=== PATIENT | male | born 1950 | race Caucasian/White ===

== ENCOUNTER 2019-11-30 10:53 | Outpatient (CLI) | payer OTHER, SELFPAY ==
--- NOTE | 2019-11-30 11:06 | MR_ITS ---
WS: [id number] MRI BRAIN WITH AND WITHOUT CONTRAST HISTORY: TREMOR COMPARISON: CT head 08/02/2008 TECHNIQUE: Multiplanar imaging performed through the brain with Prohance 15 ml's IV. No acute infarct or hemorrhage. Moderate amount of chronic microvascular ischemic changes throughout the white matter. No prior lacunar infarct. Mild bilateral symmetric atrophy. No susceptibility artifacts or prior lacunar infarcts. Ventricles and extra-axial spaces are very mildly prominent on the basis of atrophy. Clivus and pituitary gland are normal. Visualized posterior fossa and brainstem are also normal. No intracranial masses are identified. No vascular malformation. Dense area of enhancement in the RIG HT M1 portion of the MCA. Area of enhancement measures 5.3 mm and suspicious for an aneurysm. No tejinder cent hemorrhage. Dural venous sinuses are normal. Paranasal sinuses: Well aerated with no significant disease. Mastoid air cells: LEFT mastoid air cell effusion. Calvarium and scalp: Normal. MR/MR head wo/w con [id number] IMPRESSION: 1. No acute infarcts or masses. 2. Highly suspicious for RIGHT M1 aneurysm measuring 5.2 mm. Further evaluatio n by MR angiogram or CT angiogram is recommended. 3. Mild cerebral atrophy and moderate chronic microvascular ischemic disease. 4. LEFT mastoiditis.
== END 2019-11-30 10:54 | disposition home or self-care (01) ==
LOC: RADWPI 10:57
PROVIDERS: Family Provider Family Medicine; PCP Family Medicine; Visit Provider Family Medicine
DX: R25.1 Tremor, unspecified (principal); I67.82 Cerebral ischemia; H70.92 Unspecified mastoiditis, left ear
CPT/HCPCS: 70553; A9579

== ENCOUNTER 2020-01-10 11:45 | Outpatient (CLI) | payer OTHER, SELFPAY ==
[2020-01-10 12:33] LABS: Basophils # 0.1 10^3/uL (0.0-0.1); Eosinophils # 0.1 10^3/uL (0.0-0.8); Hematocrit 37.6 % (42.0-52.0); Hemoglobin 12.7 g/dL (11.7-16.6); Lymphocytes % 22.8 %; Mean Corpuscular HGB Conc 33.8 g/dL (30.0-36.0); Mean Corpuscular Hemoglobin 33.3 pg (28.0-34.0); Mean Corpuscular Volume 98.7 fL (80-94); Monocytes # 1.1 10^3/uL (0.2-0.9); Monocytes % 12.2 %; Neutrophils # 5.36 10^3/uL (1.8-7.7); Neutrophils % 62.3 %; Nucleated Red Blood Cells % 0 %; Platelet Count 142 10^3/cmm (130-400); Red Blood Count 3.81 10^6/uL (4.1-5.3); Red Cell Distribution Width 14.6 % (12.1-15.1); White Blood Count 8.6 10^3/uL (4.0-10.0)
[2020-01-10 12:44] LABS: INR 1.51 (0.8-1.2); Partial Thromboplastin Time 34.7 SECONDS (23.9-36.7)
[2020-01-10 12:45] LABS: Fibrinogen 179 mg/dL (174-498)
[2020-01-10 12:49] LABS: Albumin Level 2.6 g/dL (3.5-5.2); Alkaline Phosphatase 91 IU/L (40-130); Anion Gap 14.1 (5-19); Aspartate Amino Transferase 96 U/L (0-40); Blood Urea Nitrogen 6 mg/dL (8-23); Calcium 8.6 mg/dL (8.5-10.5); Carbon Dioxide 28 mmol/L (22-29); Chloride 92 mmol/L (98-107); Glucose 126 mg/dL (65-115); Osmolality Calculated 271 mOsm/kg (285-295); Potassium 3.1 mmol/L (3.5-5.1); Sodium 131 mmol/L (136-145); Total Bilirubin 4.2 mg/dL (0.15-1.2); Total Protein 7.6 g/dL (6.6-8.7)
[2020-01-10 12:50] LABS: Ammonia 26 umol/L (16-60)
[2020-01-10 12:54] LABS: Platelet Count 142 10^3/cmm (130-400)
[2020-01-10 13:03] LABS: Alanine Aminotransferase 39 U/L (0-41)
[2020-01-10 14:31] LABS: Tumor Marker Alpha Fetoprotein 4.1 ng/mL (0-8.3)
== END 2020-01-10 11:46 | disposition home or self-care (01) ==
LOC: LAB 11:47
PROVIDERS: PCP Family Medicine; Visit Provider Internal Medicine
DX: K74.60 Unspecified cirrhosis of liver (principal)
CPT/HCPCS: 36415; 80053; 82105; 82140; 85025; 85049; 85384; 85610; 85730

== ENCOUNTER → 2020-01-12 13:10 | Outpatient (BNVA) | payer OTHER, SELFPAY | PROVIDERS: PCP Family Medicine; Visit Provider Internal Medicine | DX: Z20.828 Contact with and (suspected) exposure to other viral communicable diseases (principal) | CPT/HCPCS: 87635 ==

== ENCOUNTER 2020-01-18 08:12 | Day surgery (SDC) | payer OTHER, SELFPAY ==
[2020-01-16 09:23] VITALS: BMI 17.4
[2020-01-18] MEDS: sodium chloride 0.9% 1,000 ML 30 ML IV (08:34)
[2020-01-18 08:51] VITALS: BP 145/86; PULSE 70; RESP 18; TEMP 36.8; O2SAT 99
--- NOTE | 2020-01-18 09:05 | ANES.PREANE2 ---
Pre-Anesthetic Assessment Pre-Anesthetic Assessment: Height/Weight: Height 1.85 m Weight 59.874 kg Temp Pulse Resp BP Pulse Ox 98.3 F 70 18 145/86 99 01/18/20 08:51 01/18/20 08:51 01/18/20 08:51 01/18/20 08:51 01/18/20 08:51 Preop Diagnosis: a Proposed Procedure: Operation Date: 01/18/20 09:15 Proposed Procedures p EGD 36305 R68.81(Not Applicable) - Víctor Marrero MD Was Beta Diomedes taken within 24 hours: N/A Last intake: Intake Last Liquid Date 01/16/20 Last Solid Date 01/16/20 Social: Social History: Alcohol and Tobacco Exam: Pre-Anes Outpt Exam: alert, oriented x 3 and regular rate & rhythm Additional Exam Findings (including area of procedure): Diminished BS Airway: Submandibular: WNL Cervical ROM: WNL MP: 2 Dentition: False Pulmonary: Pulmonary: COPD and Cough CV/HEM: CV/HEM: None reported : : None reported Hepatic: Hepatic: Cirrohsis GI: Comments: Diminished apatite and bloating Musc/skel: Musc/skel: OA/DJD Neuropsych: Neuropsych: None reported Anesthetic Plan: ASA status: 3 Anesthesia: MAC Meds/Allergies Current Medications: Current Medications Generic Name Dose Route Start Last Admin Trade Name Freq PRN Reason Stop Dose Admin Sodium Chloride 1,000 mls @ 30 ml s/hr 01/18/20 08:30 01/18/20 08:34 Sodium Chloride 0.9% IV 30 mls/hr .Q24H AGUILA Administration PFSH Anesthesia PFSH: Social History (Updated 01/10/20 @ 10:49 by AKSHAT Bhatt) Smoking and tobacco status: current every day smoker Alcohol intake: current Adopted: No Marital status: Number of children: 2 service: Yes History of recent travel: No Data Anesthesia Cardiac Studies: No Data to Display
--- NOTE | 2020-01-18 09:44 | W.PM.OPSUD ---
Surgery/Procedure H&P Update DATE OF PROCEDURE: January 18, 2020 DATE H&P PERFORMED: 01/10/20 PREOP DIAGNOSIS: a PLANNED PROCEDURE: Operation Date: 01/18/20 09:15 Proposed Procedures p EGD 12184 R68.81(Not Applicable) - Víctor Marrero MD
[2020-01-18 10:05] VITALS: BP 98/65; PULSE 87; RESP 18; TEMP 36.4; O2SAT 99
[2020-01-18 10:17] VITALS: BP 110/75; PULSE 82; RESP 18; O2SAT 99
--- NOTE | 2020-01-18 14:45 | ANE.PACU2 ---
Inpatient post-anesthesia follow up: Airway intact: Yes Vital signs: Temperature 97.5 F Pulse Rate 82 Respiratory Rate 18 Blood Pressure 110/75 Pulse Oximetry 99 Oxygen Delivery Me thod Room Air Oxygen Flow Rate 6 Fraction of Inspir ed Oxygen Hydration adequate: Yes Nausea and vomiting: No Pain level: 2 Mental status: Baseline
[2020-01-21 06:53] LABS: H. Pylori / CLO Test Negative
== END 2020-01-18 10:47 | disposition home or self-care (01) ==
PROVIDERS: PCP Family Medicine; Visit Provider Internal Medicine
PROC: 0DJ08ZZ Inspection of Upper Intestinal Tract, Via Natural or Artificial Opening Endoscopic (ICD-10-PCS; CPT 43235; principal; 2020-01-18 09:15)
DX: R13.10 Dysphagia, unspecified (principal); R63.4 Abnormal weight loss; R68.81 Early satiety; K29.71 Gastritis, unspecified, with bleeding; F17.200 Nicotine dependence, unspecified, uncomplicated; K74.60 Unspecified cirrhosis of liver; I67.1 Cerebral aneurysm, nonruptured; J44.9 Chronic obstructive pulmonary disease, unspecified
CPT/HCPCS: 12345; 43239; 87077; J2704; J7030

== ENCOUNTER 2020-01-29 18:26 | Emergency (ER) | payer OTHER, MEDICARE, SELFPAY ==
--- NOTE | 2020-01-29 18:30 | XR_ITS ---
WS: [id number] XR chest 1V portable [id number] REASON FOR EXAM: weakness FINDINGS: The chest is unchanged compared to 08/02/2008. The heart and mediastinum are within normal limits for age. Calcified granulomatous change in both hemithoraces. No active pulmonary parenchymal or pleural disea se. Mild changes of degenerative spondylosis in the mid and lower thoracic spine. XR/XR chest 1V portable [id number] IMPRESSION: No acute chest abnormality.
[2020-01-29 18:31] VITALS: BP 111/68; PULSE 143; RESP 18; TEMP 36.8; O2SAT 94; BMI 14.5
--- NOTE | 2020-01-29 18:31 | ECG_ITS ---
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
--- NOTE | 2020-01-29 18:54 | W.ED.GENADLT ---
HPI - General Adult General: Chief complaint: General Medical Stated complaint: FAILURE TO THRIVE, MALNUTRITION Time Seen by Provider: 01/29/20 18:29 Source: patient and EMS Mode of arrival: EMS Limitations: no limitations History of Present Illness: HPI narrative: 69-year-old male who has a history of cirrhosis states that he has had increased weakness over the last week. He states he has not been eating or drinking and is feeling quite dehydrated. He is also having palpitations is tachycardic with heart rate in the 140s with possible A. fib. Has no history of A. fib. States he has had abdominal distention. He denies any worsening or improving factors. Patient is very ill appearing chronically and very cachectic Associated symptoms: Reports palpitations; Deny dyspnea, nausea, rash or vomiting Review of Systems Const: Reports: fatigue Eyes: Denies: blurry vision or eye discomfort ENMT: Denies: throat pain or dental pain Card: Reports: palpitations Resp: Denies: dyspnea GI: Denies: abdominal pain, nausea, vomiting or diarrhea : Denies: dysuria Musc: Denies: neck pain or back pain Skin/Breast: Denies: rash Neuro: Reports: weakness in extremities Psych: Denies: depression Roberto/Lymph: Denies: easy bruising All/Imm: Denies: urticaria PFSH ED PFSH: Social History (Updated 01/29/20 @ 18:37 by Clovis Godinez RN) Smoking and tobacco status: light tobacco smoker Alcohol intake: current Substance/Drug Use: current Substance/Drug use frequency: daily Substance/Drug use type: Marijuana Adopted: No Marital status: Number of children: 2 service: Yes History of recent travel: No Physical Exam Const: COMMON NORMALS: patient oriented x3 GENERAL APPEARANCE: ill appearing and frail appearing NUTRITIONAL APPEARANCE: cachectic HENMT: COMMON NORMALS: normocephalic and atraumatic HEAD & SCALP: normocephalic and atraumatic Eye: COMMON NORMALS: Equal, round and reactive pupils present and EOMs intact bilaterally PUPIL: Yes Equal, round and reactive pupils present Neck/C-Spine: COMMON NORMALS: full ROM and supple Chest: COMMONS NORMALS: normal inspection of the chest and normal palpation of entire chest wall Resp: COMMON NORMALS: normal respiratory effort, No retractions, No use of accessory muscles and clear to auscultation bilaterally AUSCULTATION: clear to auscultation bilaterally Cardio: COMMON NORMALS: No murmurs present (Cardio) RATE: tachycardic RHYTHM: abnormal rhythm irregularly irregular GI: COMMON NORMALS: Soft to palpation, non-tender and no masses PALPATION: Yes Soft to palpation OTHER: Distended abdomen Extremity: COMMON NORMALS: normal to inspection and full ROM Neuro: COMMON NORMALS: patient oriented x3, moves all extremities and no focal motor deficits Psych: COMMON NORMALS: mental status grossly normal, Normal thought process present and cooperative THOUGHT PROCESS: Normal thought process present Skin: COMMON NORMALS: no rashes or lesions noted and no wounds GENERAL SKIN EXAM: no rashes or lesions noted Course Vital Signs: Vital signs: Vital Signs Temperature 98.0 F 01/29/20 19:55 Pulse Rate 120 H 01/29/20 21:00 Respiratory Rate 18 01/29/20 21:00 Blood Pressure 99/68 01/29/20 21:00 Pulse Oximetry 94 01/29/20 21:00 MDM - General Adult MDM Narrative: Medical decision making narrative: Patient presents here with elevated lactate along with cirrhosis and severe liver failure with elevated INR. Patient has ascites and possible SBP. Patient was initially tachycardic here and his heart rate is now 107 after IV fluids. Patient's blood pressures been stable. Do not have any ICU bed availability here and patient likely needs transfer to an ICU with his lactate. I did speak to ICU physician at [facility] and will transfer there. Lab Data: Labs: Lab Results 01/29/20 01/29/20 01/29/20 Range/Units 19:15 19:15 19:15 WBC 3.7 L (4.0-10.0) 10^3/ uL RBC 3.42 L (4.1-5.3) 10^6/u L Hgb 11.4 L (11.7-16.6) g/dL Hct 33.9 L (42.0-52.0) % MCV 99.1 H (80-94) fL MCH 33.3 (28.0-34.0) pg MCHC 33.6 (30.0-36.0) g/dL RDW 14.6 (12.1-15.1) % Plt Count 93 L (130-400) 10^3/c mm MPV 10.2 (7.4-10.4) fL Neut % (Auto) 87.6 % Lymph % (Auto) 11.0 % [place] % (Auto) 0.3 % Eos % (Auto) 0.3 % Baso % (Auto) 0.3 % Neut # (Auto) 3.20 (1.8-7.7) 10^3/u L Lymph # (Auto) 0.4 L (0.8-4.8) 10^3/u L [place] # (Auto) 0.0 L (0.2-0.9) 10^3/u L Eos # (Auto) 0.0 (0.0-0.8) 10^3/u L Baso # (Auto) 0.0 (0.0-0.1) 10^3/u L Nucleated RBC % (a uto) 0.5 % Nucleated RBCs # 0.0 /100WBC PT 24.50 H (12.1-14.9) SECO NDS INR 2.12 H (0.8-1.2) Specimen Type Sample Site ABG pH (7.35-7.45) ABG pCO2 (35-45) mmHg ABG pO2 (80.0-100.0) mmH g ABG HCO3 (22-26) mmol/L ABG Base Excess (-2.0-2.0) mmol/ L Yogesh Test Hematocrit (42-52) % O2 Delivery Device Adjunct Professor ID Sodium 135 L (136-145) mmol/L Potassium 3.6 (3.5-5.1) mmol/L Chloride 94 L (98-107) mmol/L Carbon Dioxide 22 (22-29) mmol/L Anion Gap 22.6 H (5-19) BUN 8 (8-23) mg/dL Creatinine 0.7 (0.7-1.2) mg/dL GFR Calculation Not Reportable Glucose 104 (65-115) mg/dL Calculated Osmolal ity 279 L (285-295) mOsm/k g Lactate (0.5-2.2) mmol/L Calcium 8.8 (8.5-10.5) mg/dL Total Bilirubin 3.2 H (0.15-1.2) mg/dL AST 56 H (0-40) U/L ALT 23 (0-41) U/L Alkaline Phosphata se 94 (40-130) IU/L Total Protein 7.1 (6.6-8.7) g/dL Albumin 2.8 L (3.5-5.2) g/dL Globulin 4.3 (1.3-4.6) g/dL 01/29/20 01/29/20 Range/Units 19:15 22:12 WBC (4.0-10.0) 10^3/ uL RBC (4.1-5.3) 10^6/u L Hgb (11.7-16.6) g/dL Hct (42.0-52.0) % MCV (80-94) fL MCH (28.0-34.0) pg MCHC (30.0-36.0) g/dL RDW (12.1-15.1) % Plt Count (130-400) 10^3/c mm MPV (7.4-10.4) fL Neut % (Auto) % Lymph % (Auto) % [place] % (Auto) % Eos % (Auto) % Baso % (Auto) % Neut # (Auto) (1.8-7.7) 10^3/u L Lymph # (Auto) (0.8-4.8) 10^3/u L [place] # (Auto) (0.2-0.9) 10^3/u L Eos # (Auto) (0.0-0.8) 10^3/u L Baso # (Auto) (0.0-0.1) 10^3/u L Nucleated RBC % (a uto) % Nucleated RBCs # /100WBC PT (12.1-14.9) SECO NDS INR (0.8-1.2) Specimen Type Arterial Sample Site Brachial, right ABG pH 7.50 H (7.35-7.45) ABG pCO2 27.7 L (35-45) mmHg ABG pO2 59.5 L (80.0-100.0) mmH g ABG HCO3 21.7 L (22-26) mmol/L ABG Base Excess -0.7 (-2.0-2.0) mmol/ L Yogesh Test N/a Hematocrit 30.2 L (42-52) % O2 Delivery Device Room air Adjunct Professor ID Harkr Sodium (136-145) mmol/L Potassium (3.5-5.1) mmol/L Chloride (98-107) mmol/L Carbon Dioxide (22-29) mmol/L Anion Gap (5-19) BUN (8-23) mg/dL Creatinine (0.7-1.2) mg/dL GFR Calculation Glucose (65-115) mg/dL Calculated Osmolal ity (285-295) mOsm/k g Lactate 10.8 H* (0.5-2.2) mmol/L Calcium (8.5-10.5) mg/dL Total Bilirubin (0.15-1.2) mg/dL AST (0-40) U/L ALT (0-41) U/L Alkaline Phosphata se (40-130) IU/L Total Protein (6.6-8.7) g/dL Albumin (3.5-5.2) g/dL Globulin (1.3-4.6) g/dL Imaging Data^: CT Abd/Pel: Radiologist's impression: [address] [address] [address] Scan Report Signed Patient: Trever Mario Unit #: [id number] : 1950 Age/Sex: 69 / M ADM Date: 01/29/20 Loc: ER Room/Bed: Attending Dr: Ordering Provider/Ordering MD: Mehran Tovar MD Date of Service: 01/29/20 Procedure(s): CT abdomen pelvis w con* [id number] Accession Number(s): [id number] Report Number: [id number] PROCEDURE INFORMATION: Exam: CT Abdomen And Pelvis With Contrast Exam date and time: 01/29/2020 8:24 PM Age: 69 years old Clinical indication: Bloating and other: Loss of appetite; Additional info: Abd pain TECHNIQUE: Imaging protocol: Computed tomography of the abdomen and pelvis with intravenous contrast. Radiation optimization: All CT scans at this facility use at least one of these dose optimization techniques: automated exposure control; mA and/or kV adjustment per patient size (includes targeted exams where dose is matched to clinical indication); or iterative reconstruction. Contrast material: OMNI 300; Contrast volume: 75 ml; Contrast route: INTRAVENOUS (IV); COMPARISON: No relevant prior studies available. RADIATION DOSE METRICS: Total DLP (mGy-cm): 472.76 FINDINGS: Mediastinal space: There is a small hiatal hernia. Liver: There is a 2 cm somewhat ill-defined irregular hypoenhancing mass in the left lobe of the liver which is not fully characterized on this examination. Further evaluation such as with MRI without with contrast is suggested. Liver has somewhat nodular contours suggestive of cirrhosis. Gallbladder and bile ducts: The gallbladder is normal. The gallbladder is normal. Pancreas: The pancreas is normal. Spleen: The spleen is normal. Adrenal glands: The adrenal glands are normal. Kidneys and ureters: There is a simple cyst in the left kidney. The right kidney is normal. There is no evidence of hydronephrosis. Stomach and bowel: There is no evidence of intestinal obstruction. There is no evidence of colitis/diverticulitis. Appendix: Not identified Intraperitoneal space: There is a large amount of free intraperitoneal fluid present. Vasculature: The aorta demonstrates severe atherosclerotic calcification and ectasia. There is saccular aneurysm of the infrarenal abdominal aorta with maximum transverse diameter of 3.1 cm and a length of approximately 5 cm. Lymph nodes: Unremarkable. No enlarged lymph nodes. Urinary bladder: Unremarkable as visualized. Reproductive: Unremarkable as visualized. Bones/joints: The lumbar spine demonstrates mild degenerative changes at multiple levels. There is stenosis at the L4-L5 level. Soft tissues: Unremarkable. CT/CT abdomen pelvis w con* [id number] IMPRESSION: 1. Massive ascites 2. Cirrhosis 3. 18 mm mass in the left lobe of the liver, further evaluation with MRI is suggested to exclude malignancy. 4. Mild abdominal aortic aneurysm COMMENTS: Consistent with the [employer]'s Incidental Findings Committee white paper (J Am Cherelle Radiol 2018): Any incidental renal lesion less than 1 cm or classified as too small to characterize, or any incidental cystic renal lesion characterized as simple-appearing, is likely benign. No follow-up imaging is recommended for these lesions per consensus recommendations based on imaging criteria. Radiation Dose CTDIVOL = (mGy): DLP = 472.76 (mGy-cm) Dictated By: Marcel Gibbs Signed By: Marcel Gibbs Signed Date/Time: 01/29/202135 EKG Data^: EKG 1: Attestation: I personally reviewed and interpreted this EKG as follows: EKG interpretation date: 01/29/20 EKG interpretation time: 19:34 Interpretation: sinus tach hr [address] or t wave abnormalities possible atrial flutter qrs 78 qtc 399 Computer generated interpretation: Abdomen/Pelvis CT 01/29/20 19:30 IMPRESSION: 1. Massive ascites 2. Cirrhosis 3. 18 mm mass in the left lobe of the liver, further evaluation with MRI is suggested to exclude malignancy. 4. Mild abdominal aortic aneurysm COMMENTS: Consistent with the [employer]'s Incidental Findings Committee white paper (J Am Cherelle Radiol 2018): Any incidental renal lesion less than 1 cm or classified as too small to characterize, or any incidental cystic renal lesion characterized as simple-appearing, is likely benign. No follow-up imaging is recommended for these lesions per consensus recommendations based on imaging criteria. Radiation Dose CTDIVOL = (mGy): DLP = 472.76 (mGy-cm) Discharge Plan Discharge Patient Disposition: Xfer Other Clinical Impression: Acidosis, lactic Cirrhosis Qualifiers: Hepatic cirrhosis type: alcoholic cirrhosis Ascites presence: with ascites Qualified Code(s): K70.31 - Alcoholic cirrhosis of liver with ascites Condition: Stable Referrals: Andrae Min [Primary Care Provider] - Coding Level of Care Code ED [employer] Plant Dispatcher for Chg Fwd Exam Comprehensive
[2020-01-29] MEDS: sodium chloride 0.9% 1,000 ML 999 ML IV ×2 (19:22→21:30)
[2020-01-29 19:27] LABS: Basophils % 0.3 %; Eosinophils % 0.3 %; Hematocrit 33.9 % (42.0-52.0); Hemoglobin 11.4 g/dL (11.7-16.6); Lymphocytes # 0.4 10^3/uL (0.8-4.8); Mean Corpuscular HGB Conc 33.6 g/dL (30.0-36.0); Mean Corpuscular Hemoglobin 33.3 pg (28.0-34.0); Mean Corpuscular Volume 99.1 fL (80-94); Mean Platelet Volume 10.2 fL (7.4-10.4); Monocytes % 0.3 %; Neutrophils % 87.6 %; Nucleated Red Blood Cells % 0.5 %; Platelet Count 93 10^3/cmm (130-400); Red Blood Count 3.42 10^6/uL (4.1-5.3); Red Cell Distribution Width 14.6 % (12.1-15.1); White Blood Count 3.7 10^3/uL (4.0-10.0)
--- NOTE | 2020-01-29 19:30 | CTR_ITS ---
PROCEDURE INFORMATION: Exam: CT Abdomen And Pelvis With Contrast Exam date and time: 01/29/2020 8:24 PM Age: 69 years old Clinical indication: Bloating and other: Loss of appetite; Additional info: Abd pain TECHNIQUE: Imaging protocol: Computed tomography of the abdomen and pelvis with intravenous contrast. Radiation optimization: All CT scans at this facility use at least one of these dose optimization techniques: automated exposure control; mA and/or kV adjustment per patient size (includes targeted exams where dose is matched to clinical indication); or iterative reconstruction. Contrast material: OMNI 300; Contrast volume: 75 ml; Contrast route: INTRAVENOUS (IV); COMPARISON: No relevant prior studies available. RADIATION DOSE METRICS: Total DLP (mGy-cm): 472.76 FINDINGS: Mediastinal space: There is a small hiatal hernia. Liver: There is a 2 cm somewhat ill-defined irregular hypoenhancing mass in the left lobe of the liver which is not fully characterized on this examination. Further evaluation such as with MRI without with contrast is suggested. Liver has somewhat nodular contours suggestive of cirrhosis. Gallbladder and bile ducts: The gallbladder is normal. The gallbladder is normal. Pancreas: The pancreas is normal. Spleen: The spleen is normal. Adrenal glands: The adrenal glands are normal. Kidneys and ureters: There is a simple cyst in the left kidney. The right kidney is normal. There is no evidence of hydronephrosis. Stomach and bowel: There is no evidence of intestinal obstruction. There is no evidence of colitis/diverticulitis. Appendix: Not identified Intraperitoneal space: There is a large amount of free intraperitoneal fluid present. Vasculature: The aorta demonstrates severe atherosclerotic calcification and ectasia. There is saccular aneurysm of the infrarenal abdominal aorta with maximum transverse diameter of 3.1 cm and a length of approximately 5 cm. Lymph nodes: Unremarkable. No enlarged lymph nodes. Urinary bladder: Unremarkable as visualized. Reproductive: Unremarkable as visualized. Bones/joints: The lumbar spine demonstrates mild degenerative changes at multiple levels. There is stenosis at the L4-L5 level. Soft tissues: Unremarkable. CT/CT abdomen pelvis w con* [id number] IMPRESSION: 1. Massive ascites 2. Cirrhosis 3. 18 mm mass in the left lobe of the liver, further evaluation with MRI is suggested to exclude malignancy. 4. Mild abdominal aortic aneurysm COMMENTS: Consistent with the [place]'s Incidental Findings Committee white paper (J Am Cherelle Radiol 2018): Any incidental renal lesion less than 1 cm or classified as too small to characterize, or any incidental cystic renal lesion characterized as simple-appearing, is likely benign. No follow-up imaging is recommended for these lesions per consensus recommendations based on imaging criteria. Radiation Dose CTDIVOL = (mGy): DLP = 472.76 (mGy-cm)
[2020-01-29 19:43] LABS: INR 2.12 (0.8-1.2)
[2020-01-29 19:52] LABS: Alanine Aminotransferase 23 U/L (0-41); Albumin Level 2.8 g/dL (3.5-5.2); Alkaline Phosphatase 94 IU/L (40-130); Anion Gap 22.6 (5-19); Aspartate Amino Transferase 56 U/L (0-40); Blood Urea Nitrogen 8 mg/dL (8-23); Calcium 8.8 mg/dL (8.5-10.5); Carbon Dioxide 22 mmol/L (22-29); Chloride 94 mmol/L (98-107); Globulin 4.3 g/dL (1.3-4.6); Glucose 104 mg/dL (65-115); Osmolality Calculated 279 mOsm/kg (285-295); Potassium 3.6 mmol/L (3.5-5.1); Sodium 135 mmol/L (136-145); Total Bilirubin 3.2 mg/dL (0.15-1.2); Total Protein 7.1 g/dL (6.6-8.7)
[2020-01-29 19:55] VITALS: BP 111/74; PULSE 140; RESP 18; TEMP 36.7; O2SAT 92
[2020-01-29 19:57] LABS: Lactate (Lactic Acid level) 10.8 mmol/L (0.5-2.2)
[2020-01-29] MEDS: iohexol 300 mg/mL 100 mL Btl IV (20:54)
[2020-01-29 21:00] VITALS: BP 99/68; PULSE 120; RESP 18; O2SAT 94
[2020-01-29] MEDS: piperacillin-tazobactam 3.375 GM in sodium chloride 0.9% (plus) 50 ML IV (21:04)
[2020-01-29] MEDS: vancomycin 1,000 MG in sodium chloride 0.9% 250 ML 250 MG IV (21:21)
[2020-01-29 22:22] LABS: ABG PCO2 27.7 mmHg (35-45); Arterial Blood Gas Hematocrit 30.2 % (42-52); Base Excess ABG -0.7 mmol/L (-2.0-2.0); Blood Gas Operator Identificat HARKR; Blood Gas Sample Site Brachial, right; Blood Gas Sample Type Arterial; HCO3 ABG 21.7 mmol/L (22-26); Oxygen Device ROOM AIR; PO2 ABG 59.5 mmHg (80.0-100.0)
--- NOTE | 2020-01-29 22:50 | PC.NURSE ---
patient has been unable to void for Urine -now needs to have BM up to bathroom per w/c
[2020-01-29 23:24] VITALS: BP 109/77; PULSE 109; RESP 18; O2SAT 93
[2020-01-29 23:48] LABS: Glucose Urine UA Norm (Normal); Protein Urine 1+ (Negative); Urine Appearance Clear (CLEAR); Urine Color Yellow (Yellow)
[2020-01-29 23:49] LABS: Add Urine Culture? No; Add Urine Microscopic? YES; Bacteria Urine TRACE /hpf; Bilirubin Urine 1+ (Negative); Blood Urine Neg (Negative); Ketones Urine 1+ (Negative); Leukocyte Esterase Urine Negative (Negative); Nitrate Urine Negative (Negative); RBC Urine 0-4 /hpf (0-2); Urobilinogen Urine Norm (Negative)
[2020-01-30] VITALS: BP 101/67; PULSE 108; RESP 20; O2SAT 93
[2020-01-30 00:03] LABS: Lactic Sepsis W/Reflex 8.5 mmol/L (0.5-2.2)
[2020-01-30 00:57] VITALS: RESP 22
[2020-01-30] MEDS: sodium chloride 0.9% 1,000 ML 150 ML IV (00:57)
[2020-01-30] MEDS: morphine 4 mg/mL SDV 1 mL IVP (00:57)
[2020-01-30] MEDS: ondansetron 2 mg/ML SDV 2 mL 4 MG IVP (00:57)
[2020-01-30 01:00] VITALS: BP 90/52; PULSE 104; RESP 20; O2SAT 92
[2020-01-30 01:14] LABS: Reflex Lactate Order REFLEX LACTIC ORDERD
--- NOTE | 2020-01-30 01:42 | PC.NURSE ---
spo2 88% placed on 2L NC
[2020-01-30 01:47] LABS: SARS Covid-2 Antigen Negative (Negative)
[2020-01-30 01:57] VITALS: BP 89/56; PULSE 106; RESP 19; O2SAT 95
[2020-01-30 02:55] VITALS: BP 85/50; PULSE 104; RESP 18; TEMP 36.7; O2SAT 96
== END 2020-01-30 02:58 | disposition other institution (70) ==
PROVIDERS: Emergency Provider Emergency Medicine; PCP Family Medicine
DX: E87.2 Acidosis (principal); K70.31 Alcoholic cirrhosis of liver with ascites; F17.210 Nicotine dependence, cigarettes, uncomplicated
CPT/HCPCS: 12345; 36600; 71045; 74177; 80053; 81001; 82803; 83605; 85025; 85610; 87040; 87426; 93005; 96365; 96367; 96375; 99283; 99285; J2270; J2405; J2543; J3370; J3490; J7030; J7050; Q9967

== ENCOUNTER 2020-02-25 17:37 | Observation (INO) | payer OTHER, MEDICARE, SELFPAY ==
[2020-02-25 17:38] VITALS: BP 104/67; PULSE 74; RESP 18; TEMP 36.7; O2SAT 97; BMI 15.5
--- NOTE | 2020-02-25 17:42 | XRR_ITS ---
PROCEDURE INFORMATION: Exam: XR Chest, 1 View Exam date and time: 02/25/2020 5:56 PM Age: 69 years old Clinical indication: Other: Weakness TECHNIQUE: Imaging protocol: XR of the chest Views: 1 view. COMPARISON: CR XR chest 1V portable [id number] 01/29/2020 6:33 PM FINDINGS: Lungs: Unremarkable. No consolidation. Pleural space: Unremarkable. No pleural effusion. No pneumothorax. Heart/Mediastinum: Unremarkable. No cardiomegaly. Bones/joints: Unremarkable. XR/XR chest 1V portable [id number] IMPRESSION: No acute findings.
[2020-02-25 17:57] LABS: Basophils # 0.1 10^3/uL (0.0-0.1); Basophils % 0.3 %; Hematocrit 30.8 % (42.0-52.0); Hemoglobin 10.7 g/dL (11.7-16.6); Lymphocytes % 16.2 %; Mean Corpuscular HGB Conc 34.7 g/dL (30.0-36.0); Mean Corpuscular Hemoglobin 33.3 pg (28.0-34.0); Mean Platelet Volume 10.1 fL (7.4-10.4); Monocytes # 1.5 10^3/uL (0.2-0.9); Monocytes % 8.1 %; Neutrophils # 14.08 10^3/uL (1.8-7.7); Nucleated Red Blood Cells % 0 %; Platelet Count 92 10^3/cmm (130-400); Red Blood Count 3.21 10^6/uL (4.1-5.3); Red Cell Distribution Width 15.9 % (12.1-15.1); White Blood Count 18.8 10^3/uL (4.0-10.0)
--- NOTE | 2020-02-25 18:06 | CTR_ITS ---
PROCEDURE INFORMATION: Exam: CT Abdomen And Pelvis With Contrast Exam date and time: 02/25/2020 6:42 PM Age: 69 years old Clinical indication: Abdominal tenderness; Patient HX: Weakness, loss of appetite, HX of cirrhosis; Additional info: Jesus bryant TECHNIQUE: Imaging protocol: Computed tomography of the abdomen and pelvis with intravenous contrast. Total images: 235 Radiation optimization: All CT scans at this facility use at least one of these dose optimization techniques: automated exposure control; mA and/or kV adjustment per patient size (includes targeted exams where dose is matched to clinical indication); or iterative reconstruction. Contrast material: OMNI 300; Contrast volume: 75 ml; Contrast route: INTRAVENOUS (IV); COMPARISON: CT abdomen pelvis w con* [id number] 01/29/2020 8:33 PM RADIATION DOSE METRICS: Total DLP (mGy-cm): 436.33 FINDINGS: Pleural space: Scant bilateral pleural effusions, left slightly larger in volume than the right. Liver: Cirrhosis of the liver. Persistent approximately 20 mm hypodense structure within the lateral segment left hepatic lobe with ill-defined margins. No appreciable significant interval change since 01/29/2020. No distinguishing characteristics to aid and diagnostic evaluation. Unable to exclude neoplastic process. Consideration might be given to further evaluation with MRI of the liver with and without contrast. Gallbladder and bile ducts: Gallbladder without visible cholelithiasis. Pancreas: Pancreas unremarkable. No visible pancreatic ductal ectasia. Spleen: Spleen unremarkable. Adrenal glands: Adrenal glands unremarkable. Kidneys and ureters: Stable tiny cortical cyst superior pole left kidney. No follow-up recommended. Tiny focus of nonobstructing calyceal nephrolithiasis equator left kidney under 2 mm. No hydronephrosis or perinephric fluid bilaterally. Right kidney unremarkable. Stomach and bowel: Nonobstructive bowel pattern. No visible evidence of significant adynamic or reactive ileus. Appendix: No evidence of appendicitis. Intraperitoneal space: Large volume intraperitoneal ascites. Vasculature: Advanced coronary artery disease. The abdominal aorta demonstrates minimal infrarenal fusiform aneurysmal dilatation stable since last evaluation with associated moderately advanced arterial sclerotic disease. Portal vein remains patent. Lymph nodes: No current visible evidence of active mesenteric or retroperitoneal lymphadenopathy. Urinary bladder: Unremarkable as visualized. Reproductive: Unremarkable as visualized. Bones/joints: Mild scoliotic curvature of the spine. No visible acute osseous abnormality. Mild degenerative disease of the spine. Spinal stenosis L4/L5. Soft tissues: Cachexia. Other findings: COPD/chronic bronchitis. CT/CT abdomen pelvis w con* [id number] IMPRESSION: 1. No visible evidence of acute abdominal or pelvic pathologic process. 2. No appreciable significant overall change since 01/29/2020. 3. Large volume intraperitoneal ascites. 4. Cirrhosis of the liver. 5. Left nephrolithiasis. 6. Advanced coronary artery disease. 7. Scant bilateral pleural effusions. 8. Persistent approximately 20 mm hypodense structure within the lateral segment left hepatic lobe with ill-defined margins. No appreciable significant interval change since 01/29/2020. No distinguishing characteristics to aid and diagnostic evaluation. Unable to exclude neoplastic process. Consideration might be given to further evaluation with MRI of the liver with and without contrast. COMMENTS: Consistent with the [employer]'s Incidental Findings Committee white paper (J Am Cherelle Radiol 2018): Any incidental renal lesion less than 1 cm or classified as too small to characterize, or any incidental cystic renal lesion characterized as simple-appearing, is likely benign. No follow-up imaging is recommended for these lesions per consensus recommendations based on imaging criteria. Radiation Dose CTDIVOL = (mGy): DLP = 436.33 (mGy-cm)
--- NOTE | 2020-02-25 18:08 | ECG_ITS ---
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 Measurements Intervals [place] Rate: 75 P: 9 AZ: 116 QRS: 73 QRSD: 85 T: 65 QT: 378 QTc: 422 Interpretive Statements SINUS RHYTHM WITH SHORT [place] INTERVAL LOW QRS VOLTAGE IN PRECORDIAL LEADS [QRS DEFLECTION < 1.0 mV IN CHEST LEADS] Compared to ECG 01/29/2020 19:34:46 Low QRS voltage now present T-wave abnormality no longer present Electronically Signed On 02-25-2020 20:08:22 PANEL FITTER by Nenita Robledo M.D. [id number]
--- NOTE | 2020-02-25 18:08 | W.ED.WEAKNES ---
HPI - Weakness General: Chief complaint: Weakness Stated complaint: weakness Time Seen by Provider: 02/25/20 17:39 Source: patient and EMS Mode of arrival: EMS Limitations: no limitations History of Present Illness: HPI Narrative: 69-year-old male with a history of alcoholic cirrhosis. He states that he has just been progressively getting weaker and today felt extremely weak and was unable to get out of his bed. He denies any fevers. He states that he was not able to walk due to his weakness. Denies any chest pain or shortness of breath. He does have ascites but denies any abdominal pain. Associated symptoms: Denies chest pain, chills, dysuria, easy bruising, fever(s), nausea or vomiting Review of Systems Const: Denies: fever(s), chills, body aches or change in appetite Eyes: Denies: blurry vision or eye discomfort ENMT: Denies: throat pain or dental pain Card: Denies: chest pain Resp: Denies: dyspnea GI: Denies: abdominal pain, nausea, vomiting or diarrhea : Denies: dysuria Musc: Denies: neck pain or back pain Skin/Breast: Denies: rash Neuro: Reports: weakness in extremities Psych: Denies: depression Roberto/Lymph: Denies: easy bruising All/Imm: Denies: urticaria PFSH ED PFSH: Medical History (Updated 02/25/20 @ 21:43 by Mehran Tovar MD) Abnormal weight loss Alcoholic cirrhosis of liver Aneurysm brain aneurysm Cerebral aneurysm Cirrhosis Early satiety Essential (primary) hypertension Lumbago PUD (peptic ulcer disease) Surgical History (Updated 02/25/20 @ 21:03 by Fran Bojorquez MD) H/O elbow surgery Family History (Updated 02/25/20 @ 21:03 by Fran Bojorquez MD) Other Family history non-contributory Social History Smoking and tobacco status: light tobacco smoker Alcohol intake: current Adopted: No Marital status: Number of children: 2 service: Yes History of recent travel: No Physical Exam Const: COMMON NORMALS: patient oriented x3 GENERAL APPEARANCE: disheveled, ill appearing and frail appearing HENMT: COMMON NORMALS: normocephalic and atraumatic HEAD & SCALP: normocephalic and atraumatic Eye: COMMON NORMALS: Equal, round and reactive pupils present and EOMs intact bilaterally PUPIL: Yes Equal, round and reactive pupils present Neck/C-Spine: COMMON NORMALS: full ROM and supple Chest: COMMONS NORMALS: normal inspection of the chest and normal palpation of entire chest wall Resp: COMMON NORMALS: normal respiratory effort, No retractions, No use of accessory muscles and clear to auscultation bilaterally AUSCULTATION: clear to auscultation bilaterally Cardio: COMMON NORMALS: regular rate, regular rhythm and No murmurs present (Cardio) RATE: regular rate RHYTHM: regular rhythm GI: COMMON NORMALS: Normal to inspection, nondistended, normoactive bowel sounds present, Soft to palpation, non-tender and no masses PALPATION: Yes Soft to palpation OTHER: Ascites Extremity: COMMON NORMALS: normal to inspection and full ROM Neuro: COMMON NORMALS: patient oriented x3, moves all extremities and no focal motor deficits Psych: COMMON NORMALS: mental status grossly normal, Normal thought process present and cooperative THOUGHT PROCESS: Normal thought process present Skin: COMMON NORMALS: no rashes or lesions noted and no wounds GENERAL SKIN EXAM: no rashes or lesions noted Course Vital Signs: Vital signs: Vital Signs Temperature 98.0 F 02/25/20 17:38 Pulse Rate 74 02/25/20 20:47 Respiratory Rate 17 02/25/20 20:47 Blood Pressure 106/68 02/25/20 20:47 Pulse Oximetry 95 02/25/20 20:47 MDM - Weakness MDM Narrative: Medical decision making narrative: Trever presents here with generalized weakness and was found to have a leukocytosis. Abdominal exam here is benign and he has no signs of SBP. Will start him on IV antibiotics and get blood cultures. Due to his weakness along with his frailty and leukocytosis I spoke to hospitalist and will admit. Patient has no signs of septic shock and blood pressures been stable down here. Lab Data: Labs: Lab Results 02/25/20 02/25/20 02/25/20 Range/Units 17:10 17:10 18:25 WBC 18.8 H (4.0-10.0) 10^3/ uL RBC 3.21 L (4.1-5.3) 10^6/u L Hgb 10.7 L (11.7-16.6) g/dL Hct 30.8 L (42.0-52.0) % MCV 96.0 H (80-94) fL MCH 33.3 (28.0-34.0) pg MCHC 34.7 (30.0-36.0) g/dL RDW 15.9 H (12.1-15.1) % Plt Count 92 L (130-400) 10^3/c mm MPV 10.1 (7.4-10.4) fL Neut % (Auto) 75.0 % Lymph % (Auto) 16.2 % [place] % (Auto) 8.1 % Eos % (Auto) 0.0 % Baso % (Auto) 0.3 % Neut # (Auto) 14.08 H (1.8-7.7) 10^3/u L Lymph # (Auto) 3.0 (0.8-4.8) 10^3/u L [place] # (Auto) 1.5 H (0.2-0.9) 10^3/u L Eos # (Auto) 0.0 (0.0-0.8) 10^3/u L Baso # (Auto) 0.1 (0.0-0.1) 10^3/u L Nucleated RBC % (a uto) 0 % Nucleated RBCs # 0.0 /100WBC Sodium 128 L (136-145) mmol/L Potassium 3.8 (3.5-5.1) mmol/L Chloride 95 L (98-107) mmol/L Carbon Dioxide 25 (22-29) mmol/L Anion Gap 11.8 (5-19) BUN 13 (8-23) mg/dL Creatinine 0.7 (0.7-1.2) mg/dL GFR Calculation Not Reportable Glucose 127 H (65-115) mg/dL Calculated Osmolal ity 268 L (285-295) mOsm/k g Lactic Acid (0.5-2.2) mmol/L Calcium 8.5 (8.5-10.5) mg/dL Total Bilirubin 3.2 H (0.15-1.2) mg/dL AST 43 H (0-40) U/L ALT 24 (0-41) U/L Alkaline Phosphata se 77 (40-130) IU/L Total Protein 6.2 L (6.6-8.7) g/dL Albumin 2.5 L (3.5-5.2) g/dL Globulin 3.7 (1.3-4.6) g/dL Lipase 69 H (13-60) U/L Urine Color Red (Yellow) Urine Appearance Hazy A (CLEAR) Urine pH 5 (5-7) Ur Specific Gravit y 1.025 (1.005-1.030) Urine Protein Neg (Negative) Urine Glucose (UA) Norm (Normal) Urine Ketones 1+ H (Negative) Urine Blood Trace H (Negative) Urine Nitrate Negative (Negative) Urine Bilirubin 1+ H (Negative) Urine Urobilinogen 1 H (Negative) mg/dL Ur Leukocyte Eli ase Negative (Negative) Urine RBC 0-4 H (0-2) /hpf Urine WBC 0-4 H (0-5) /hpf Ur Squamous Epith Cells 0-4 H (0-5) /hpf Amorphous Sediment Not Reportable Urine Bacteria 1+ H (NONE) /hpf Urine Mucus 2+ /hpf 12/21/20 Range/Units 18:42 WBC (4.0-10.0) 10^3/ uL RBC (4.1-5.3) 10^6/u L Hgb (11.7-16.6) g/dL Hct (42.0-52.0) % MCV (80-94) fL MCH (28.0-34.0) pg MCHC (30.0-36.0) g/dL RDW (12.1-15.1) % Plt Count (130-400) 10^3/c mm MPV (7.4-10.4) fL Neut % (Auto) % Lymph % (Auto) % [place] % (Auto) % Eos % (Auto) % Baso % (Auto) % Neut # (Auto) (1.8-7.7) 10^3/u L Lymph # (Auto) (0.8-4.8) 10^3/u L [place] # (Auto) (0.2-0.9) 10^3/u L Eos # (Auto) (0.0-0.8) 10^3/u L Baso # (Auto) (0.0-0.1) 10^3/u L Nucleated RBC % (a uto) % Nucleated RBCs # /100WBC Sodium (136-145) mmol/L Potassium (3.5-5.1) mmol/L Chloride (98-107) mmol/L Carbon Dioxide (22-29) mmol/L Anion Gap (5-19) BUN (8-23) mg/dL Creatinine (0.7-1.2) mg/dL GFR Calculation Glucose (65-115) mg/dL Calculated Osmolal ity (285-295) mOsm/k g Lactic Acid 2.5 H (0.5-2.2) mmol/L Calcium (8.5-10.5) mg/dL Total Bilirubin (0.15-1.2) mg/dL AST (0-40) U/L ALT (0-41) U/L Alkaline Phosphata se (40-130) IU/L Total Protein (6.6-8.7) g/dL Albumin (3.5-5.2) g/dL Globulin (1.3-4.6) g/dL Lipase (13-60) U/L Urine Color (Yellow) Urine Appearance (CLEAR) Urine pH (5-7) Ur Specific Gravit y (1.005-1.030) Urine Protein (Negative) Urine Glucose (UA) (Normal) Urine Ketones (Negative) Urine Blood (Negative) Urine Nitrate (Negative) Urine Bilirubin (Negative) Urine Urobilinogen (Negative) mg/dL Ur Leukocyte Eli ase (Negative) Urine RBC (0-2) /hpf Urine WBC (0-5) /hpf Ur Squamous Epith Cells (0-5) /hpf Amorphous Sediment Urine Bacteria (NONE) /hpf Urine Mucus /hpf Imaging Data^: CXR: Attestation: I personally reviewed and interpreted this imaging study as follows: My impression: no acute abnormality EKG Data^: EKG 1: Attestation: I personally reviewed and interpreted this EKG as follows: EKG interpretation date: 02/25/20 EKG interpretation time: 18:42 Interpretation: nsr hr [address] or t wave abnormalities qrs 85 qtc 406 Discharge Plan Discharge Patient Disposition: Admitted As Inpatient Clinical Impression: Alcoholic cirrhosis of liver, Generalized weakness, Leukocytosis Condition: Stable Prescriptions: No Action midodrine 5 mg tablet 5 mg PO TID Qty: 90 RF: 3 pantoprazole 40 mg tablet,delayed release (DR/EC) 40 mg PO DAILY Qty: 90 RF: 8 propranolol 10 mg tablet 10 mg PO BID Qty: 180 RF: 3 spironolactone 25 mg tablet 25 mg PO DAILY Qty: 90 RF: 3 Ensure Liquid 1 each PO DAILY RF: 0 Referrals: Andrae Min [Primary Care Provider] - Coding Level of Care Code ED Visitor Services Associate for Chg Fwd Exam Comprehensive
[2020-02-25 18:13] LABS: Alanine Aminotransferase 24 U/L (0-41); Albumin Level 2.5 g/dL (3.5-5.2); Alkaline Phosphatase 77 IU/L (40-130); Anion Gap 11.8 (5-19); Aspartate Amino Transferase 43 U/L (0-40); Blood Urea Nitrogen 13 mg/dL (8-23); Calcium 8.5 mg/dL (8.5-10.5); Carbon Dioxide 25 mmol/L (22-29); Chloride 95 mmol/L (98-107); Globulin 3.7 g/dL (1.3-4.6); Glucose 127 mg/dL (65-115); Lipase 69 U/L (13-60); Osmolality Calculated 268 mOsm/kg (285-295); Potassium 3.8 mmol/L (3.5-5.1); Sodium 128 mmol/L (136-145); Total Bilirubin 3.2 mg/dL (0.15-1.2); Total Protein 6.2 g/dL (6.6-8.7)
[2020-02-25 18:56] LABS: Urine Appearance Hazy (CLEAR); Urine Color Red (Yellow)
[2020-02-25 18:57] LABS: Add Urine Microscopic? YES; Bacteria Urine 1+ /hpf; Bilirubin Urine 1+ (Negative); Blood Urine Trace (Negative); Glucose Urine UA Norm (Normal); Ketones Urine 1+ (Negative); Leukocyte Esterase Urine Negative (Negative); Mucus Urine 2+ /hpf; Nitrate Urine Negative (Negative); Protein Urine Neg (Negative); RBC Urine 0-4 /hpf (0-2); Specific Gravity, Urine 1.025 (1.005-1.030); Squamous Epithelial Cell Urine 0-4 /hpf (0-5); Urobilinogen Urine 1 mg/dL (Negative); WBC Urine 0-4 /hpf (0-5); pH Urine 5 (5-7)
[2020-02-25 19:03] LABS: Lactic Sepsis W/Reflex 2.5 mmol/L (0.5-2.2)
[2020-02-25] MEDS: sodium chloride 0.9% 1,000 ML 999 ML IV ×2 (19:05→22:32)
[2020-02-25] MEDS: iohexol 300 mg/mL 100 mL Btl IV (19:15)
[2020-02-25 20:37] LABS: Reflex Lactate Order REFLEX LACTIC ORDERD
[2020-02-25 20:47] VITALS: BP 106/68; PULSE 74; RESP 17; O2SAT 95
[2020-02-25] MEDS: piperacillin-tazobactam 3.375 GM in sodium chloride 0.9% (plus) 50 ML IV (20:48)
--- NOTE | 2020-02-25 20:56 | P.HP_ITS ---
Providers/Chief Complaint Primary Care Provider: Andrae Min Chief Complaint: weakness History of Present Illness Trever Mario is a 69 year old male who carries history of liver cirrhosis due to alcohol abuse, ascites, peptic ulcer disease evident on EGD, has been experiencing early satiety, anorexia presented today with chief complaint of worsening weakness. Patient has recently established care with Dr. Marrero prior to that he was at [facility]. alpha-fetoprotein marker was 4 within normal range. At [facility] he was requested to go to [place] for work-up of his possible hepatic malignancy, patient has home health services, her health care nurse checked on him today he was not able to get up from his bed hence she recommended him to go to the hospital for further evaluation. Patient is also experiencing loose stools for last 2 days, low-grade temperature 99.1, no nausea, vomiting, chest pain, shortness of breath or abdominal pain. He is also experiencing anorexia, significant weight loss and muscle mass loss. He is not taking rifaximin or lactulose and Lasix because of his extreme dehydration and deconditioning Diagnosis in the ER revealed soft blood pressure patient was awake alert not complaining of any active abdominal pain considering high leukocytosis he was started on vancomycin and Zosyn by the ER physician, chronic anemia, no signs of active hepatic encephalopathy, chronic hyponatremia lactic acid 2.5 bilirubin 3.2 no active signs of sepsis abdomen CT scan revealed ascites, clinically no signs of SBP Review of Systems Const: Reports: chills, body aches, change in appetite, change in weight, fatigue, malaise and night sweats; Denies: fever(s) Eyes: Denies: change in vision ENMT: Denies: throat pain Card: Reports: swelling of feet/ankles, dyspnea on exertion and orthopnea; Denies: chest pain Resp: Denies: dyspnea GI: Denies: abdominal pain, nausea or vomiting : Denies: flank pain Musc: Reports: muscle weakness; Denies: neck pain Skin/Breast: Denies: rash, pruritus or erythema Neuro: Denies: headache(s) Psych: Denies: anxiety Endo: Denies: polyuria Roberto/Lymph: Denies: easy bruising All/Imm: Denies: urticaria Medications/Allergies Home Medications Medication Instructions Recorded Confirmed Last Taken Type food supplemt, lactose-reduced 1 each PO DAILY ml 12/31/19 02/25/20 02/25/20 History midodrine 5 mg tablet 5 mg PO TID #90 tab 02/21/20 02/25/20 02/25/20 Rx pantoprazole 40 mg tablet,delayed 40 mg PO DAILY #90 tab 02/21/20 02/25/20 02/25/20 Rx release propranolol 10 mg tablet 10 mg PO BID #180 tab 02/21/20 02/25/20 02/25/20 Rx spironolactone 25 mg tablet 25 mg PO DAILY #90 tab 02/21/20 02/25/20 02/25/20 Rx Allergies Allergy/AdvReac Type Severity Reaction Status Date / Time No Known Allergies Allergy Verified 02/25/20 17:45 PFSH Acute PFSH: Medical History Abnormal weight loss Alcoholic cirrhosis of liver Aneurysm brain aneurysm Cerebral aneurysm Cirrhosis Early satiety Essential (primary) hypertension Lumbago PUD (peptic ulcer disease) Surgical History H/O elbow surgery Family History Other Family history non-contributory Social History Smoking and tobacco status: light tobacco smoker Alcohol intake: current Adopted: No Marital status: Number of children: 2 service: Yes History of recent travel: No Vitals/I&O/Wt Last Vital Signs Temp 98.0 F 02/25/20 17:38 Pulse 74 02/25/20 20:47 Resp 17 02/25/20 20:47 BP 106/68 02/25/20 20:47 Pulse Ox 95 02/25/20 20:47 02/25/20 02/25/20 02/25/20 06:59 14:59 22:59 Intake Total 1000 / 1000 Balance 1000 / 1000 Weight last 48 hrs Weight 53.524 kg Physical Exam Narrative: EXAM NARRATIVE: Extremely cachectic malnourished anorexic appearing male Not complaining of active chest pain, abdominal pain shortness of breath Abdomen is distended, ascites No active signs of hepatic encephalopathy No signs of peritonitis, bowel sound present S1, S2 fluid overloaded Soft blood pressure ranging between 75 to 80smmhg Bilateral breath sounds no active wheezing or rhonchi, bilateral crackles at the bases Lower extremity 2+ pitting edema Evident muscle mass loss EOMI, PERRLA awake alert oriented x3 GCS Flat affect Data : 02/25/20 17:10 02/25/20 17:10 A&P Assessment and plan (1) Generalized weakness: Status: Acute (2) Anemia: Status: Acute (3) Alcoholic cirrhosis of liver: Status: Acute (4) Nephrolithiasis: Status: Acute (5) AAA (abdominal aortic aneurysm): Status: Acute (6) Bilateral pleural effusion: Status: Acute (7) Liver mass: Status: Acute Additional A&P Information Worsening generalized weakness Patient is endorsing diarrhea for last 48 hours no recent use of antibiotics fever abdominal pain I would treat him empirically with ceftriaxone 2 g daily Would request diagnostic paracentesis in the morning Request TSH Patient is extremely dehydrated experiencing early satiety anorexia, weight loss, due to get evaluated at [place] for hepatic mass rule out malignancy however recent AFP marker not high Patient has home health services and is leaning towards palliative care Alcoholic liver cirrhosis However never got biopsy for diagnostic purposes Management as mentioned above Continue on rifaximin and lactulose no active worsening of hepatic encephalopathy, he has dehydration and malnourishment, I would hold lactulose for now as it might make dehydration worse Hold off on albumin his creatinine is not above 1, total bilirubin not greater than 4, continue on spironolactone and Lasix along ceftriaxone Recent EGD did not reveal any varices Nephrolithiasis Patient does endorse pain in his right groin area however nephrolithiasis on left side, no abnormal creatinine or potassium noted, no severe signs of hydronephrosis on CT abdomen DNR/DNI goals of care discussed with the patient and his Social service consult for palliative care Cardiac diet Attestations Medical Necessity Statement*: Anticipating discharge in less than 48 hours, need gentle hydration, extremely weak and lethargic cachectic, need palliative care consult in the morning Time Spent in Patient Care: (>than 50% of time spent in counselling and/or direct pt care on unit) . 40mins Coding Level of Care Code Acute Pipefitter Welder for [facility] Fwd Diagnoses Generalized weakness R53.1 Anemia D64.9 Alcoholic cirrhosis of liver K70.30 Nephrolithiasis N20.0 AAA (abdominal aortic aneurysm) I71.4 Bilateral pleural effusion J90 Liver mass R16.0
[2020-02-25] MEDS: vancomycin 1,000 MG in sodium chloride 0.9% 250 ML 250 MG IV (21:57)
[2020-02-25 21:58] VITALS: BP 76/54; PULSE 73; RESP 17; O2SAT 91
[2020-02-25 22:31] VITALS: BP 80/55; PULSE 72; RESP 17; O2SAT 92
[2020-02-25 22:46] LABS: Ammonia 42 umol/L (16-60)
[2020-02-25 23:42] VITALS: BP 84/52; PULSE 71; RESP 17; O2SAT 93
[2020-02-26] VITALS (11 sets, daily range): BP systolic 87–114; BP diastolic 56–78; PULSE 69–77; RESP 15–18; TEMP 36.7; O2SAT 91–97
--- NOTE | 2020-02-26 10:14 | PC.NURSE ---
breakfast tray ordered but patient only drank the orange juice
--- NOTE | 2020-02-26 12:23 | P.DS_ITS ---
Discharge Providers Date of Admission: 02/26/20 07:00 Date of Discharge: February 26, 2020 Attending Provider at Admission: Graham Jacob Attending Provider at Discharge: Graham Jacob Primary Care Provider: Andrae Min Diagnoses at Discharge Discharge Diagnosis (1) Generalized weakness: Status: Acute (2) Anemia: Status: Acute (3) Alcoholic cirrhosis of liver: Status: Acute (4) Nephrolithiasis: Status: Acute (5) AAA (abdominal aortic aneurysm): Status: Acute Permanent problem details: Infrarenal AAA (6) Bilateral pleural effusion: Status: Acute (7) Liver mass: Status: Acute Reason for Visit Reason for Visit: weakness Hospital Course Hospital Course The patient is a 69-year-old male with past medical history of alcoholic cirrhosis and liver mass, chronic ascites who was brought by his family to emergency room due to generalized weakness. Has chronic thrombocytopenia and anemia. Mild hyponatremia. White blood cells were elevated. He has bacteriuria. The abdomen is distended but soft and nontender. Low likelihood of SBP. Overall his condition remained stable and mainly unchanged overnight. He is awake and alert this morning. Oriented. Mood and affect are appropriate. He wants to go home with hospice. His is at the bedside and confirms this decision. I also spoke with patient's primary care physician Dr. Marrero who is familiar with the patient and also feels that hospice and palliative care are appropriate in his case. We will discharge him home with Omnicef for bacteriuria and probable urinary tract infection. Hopefully this could help him with feeling a little stronger. Otherwise he will continue his home medications. The plan of care was discussed with the patient and his . They voiced no concerns or any additional questions. They were instructed to come back to emergency room if develop any new problems. They verbalized understanding and agreement Discharge Data Data Completed and Pending: Completed Studies During Hospitalization Category Date Time Status CT abdomen pelvis w con* [id number] Urge nt Cat Scan 02/25/20 18:06 Completed XR chest 1V corazon ble [id number] Urgent Exams 02/25/20 17:42 Completed Pending at discharge Category Date Time Status Albumin Body Flui d Routine Lab 02/26/20 12:11 Uncollected Blood Culture Sta t Lab 02/25/20 20:58 Results Body Fluid Analys is Routine Lab 02/26/20 12:11 Uncollected Body Fluid Cultur e Routine Lab 02/26/20 12:11 Uncollected Complete Blood Co unt w/Auto AM LABS Lab 02/27/20 04:00 Ordered Comprehensive Met abolic Panel AM LA BS Lab 02/27/20 04:00 Ordered Glucose Body Flui d Routine Lab 02/26/20 12:11 [place]collected [place] bd w [id number] Routine Ultrasound 02/26/20 12:11 Ordered Labs from last 24 hours 02/25/20 02/25/20 02/25/20 22:18 22:18 18:42 WBC RBC Hgb Hct MCV MCH MCHC RDW Plt Count MPV Neut % (Auto) Lymph % (Auto) Tillman % (Auto) Eos % (Auto) Baso % (Auto) Neut # (Auto) Lymph # (Auto) Tillman # (Auto) Eos # (Auto) Baso # (Auto) Nucleated RBC % (a uto) Nucleated RBCs # Sodium Potassium Chloride Carbon Dioxide Anion Gap BUN Creatinine GFR Calculation Glucose Calculated Osmolal ity Lactic Acid 2.5 H Lactic Acid (Sepsi s) 2.0 Calcium Total Bilirubin AST ALT Alkaline Phosphata se Ammonia 42 Total Protein Albumin Globulin Lipase Urine Color Urine Appearance Urine pH Ur Specific Gravit y Urine Protein Urine Glucose (UA) Urine Ketones Urine Blood Urine Nitrate Urine Bilirubin Urine Urobilinogen Ur Leukocyte Eli ase Urine RBC Urine WBC Ur Squamous Epith Cells Amorphous Sediment Urine Bacteria Urine Mucus 02/25/20 02/25/20 02/25/20 18:25 17:10 17:10 WBC 18.8 H RBC 3.21 L Hgb 10.7 L Hct 30.8 L MCV 96.0 H MCH 33.3 MCHC 34.7 RDW 15.9 H Plt Count 92 L MPV 10.1 Neut % (Auto) 75.0 Lymph % (Auto) 16.2 Tillman % (Auto) 8.1 Eos % (Auto) 0.0 Baso % (Auto) 0.3 Neut # (Auto) 14.08 H Lymph # (Auto) 3.0 Tillman # (Auto) 1.5 H Eos # (Auto) 0.0 Baso # (Auto) 0.1 Nucleated RBC % (a uto) 0 Nucleated RBCs # 0.0 Sodium 128 L Potassium 3.8 Chloride 95 L Carbon Dioxide 25 Anion Gap 11.8 BUN 13 Creatinine 0.7 GFR Calculation Not Reportable Glucose 127 H Calculated Osmolal ity 268 L Lactic Acid Lactic Acid (Sepsi s) Calcium 8.5 Total Bilirubin 3.2 H AST 43 H ALT 24 Alkaline Phosphata se 77 Ammonia Total Protein 6.2 L Albumin 2.5 L Globulin 3.7 Lipase 69 H Urine Color Red Urine Appearance Hazy A Urine pH 5 Ur Specific Gravit y 1.025 Urine Protein Neg Urine Glucose (UA) Norm Urine Ketones 1+ H Urine Blood Trace H Urine Nitrate Negative Urine Bilirubin 1+ H Urine Urobilinogen 1 H Ur Leukocyte Eli ase Negative Urine RBC 0-4 H Urine WBC 0-4 H Ur Squamous Epith Cells 0-4 H Amorphous Sediment Not Reportable Urine Bacteria 1+ H Urine Mucus 2+ Vitals: Last Vital Signs Temp 98.0 F 02/26/20 11:57 Pulse 77 02/26/20 11:58 Resp 18 02/26/20 11:58 BP 105/74 02/26/20 11:58 Pulse Ox 95 02/26/20 11:58 Discharge Plan Discharge Patient Disposition: Home Condition: Stable Prescriptions: New cefdinir 300 mg capsule 300 mg PO BID 10 Days Qty: 14 RF: 0 Continued midodrine 5 mg tablet 5 mg PO TID Qty: 90 RF: 3 pantoprazole 40 mg tablet,delayed release (DR/EC) 40 mg PO DAILY Qty: 90 RF: 8 propranolol 10 mg tablet 10 mg PO BID Qty: 180 RF: 3 spironolactone 25 mg tablet 25 mg PO DAILY Qty: 90 RF: 3 Ensure Liquid 1 each PO DAILY RF: 0 Discharge Orders: Discharge Order (Routine); Ordered 02/26/20 Ordered By: Graham Jacob Referrals: Andrae Min [Primary Care Provider] - Discharge Diet: Usual diet Discharge Activity: Increase activity as tolerated Discharge Attestations Time Spent in Discharge Care*: less than 30 min Quality Metrics Clinical Quality Measures During this hospital stay, did patient experience: None Coding Level of Care Code Acute [employer]ing [employer] for [employer] Diagnoses Generalized weakness R53.1 Anemia D64.9 Alcoholic cirrhosis of liver K70.30 Nephrolithiasis N20.0 AAA (abdominal aortic aneurysm) I71.4 Bilateral pleural effusion J90 Liver mass R16.0
--- NOTE | 2020-02-27 17:48 | PC.RESP ---
Smoking Cessation information sent to patient.
== END 2020-02-26 12:50 | disposition home or self-care (01) ==
LOC: ER 21:43 → ER IP 02-26 08:56 → MEDSURG 02-26 11:42 → CSU 03-04 09:27
PROVIDERS: Internal Medicine; Admitting Provider Internal Medicine; Emergency Provider Emergency Medicine; PCP Family Medicine; Visit Provider Internal Medicine
DX: R53.1 Weakness (principal); D64.9 Anemia, unspecified; K70.30 Alcoholic cirrhosis of liver without ascites; N20.0 Calculus of kidney; I71.4 Abdominal aortic aneurysm, without rupture; J90 Pleural effusion, not elsewhere classified; R16.0 Hepatomegaly, not elsewhere classified; Z87.11 Personal history of peptic ulcer disease; I10 Essential (primary) hypertension; F17.210 Nicotine dependence, cigarettes, uncomplicated; Z66 Do not resuscitate
CPT/HCPCS: 12345; 36415; 71045; 74177; 80053; 81001; 82140; 83605; 83690; 85025; 87040; 93005; 99284; G0378; J2543; J3370; J7030; J7050; Q9967